=== PATIENT | male | born 1955 | race Caucasian/White ===

== ENCOUNTER 2019-09-19 17:50 | Emergency (ER) | payer MEDICAID, SELFPAY ==
[2019-09-19 17:53] VITALS: BP 143/98; PULSE 113; RESP 17; TEMP 37.1; O2SAT 94; BMI 28.4
--- NOTE | 2019-09-19 18:23 | EKG12_ITS ---
Test Reason : ASTHMA Blood Pressure : / mmHG Vent. Rate : 098 BPM Atrial Rate : 098 BPM P-R Int : 150 ms QRS Dur : 088 ms QT Int : 364 ms P-R-T Axes : 050 020 -16 degrees QTc Int : 464 ms Normal sinus rhythm Nonspecific T wave abnormality Prolonged QT Abnormal ECG Confirmed by STANLEY WEN, GLENDY ([id number]), video tape editor LATOYA TESFAYE ([id number]) on 09/21/2019 10:58:25 AM Referred By: LUZ Confirmed By:GLENDY ANGEL MD
--- NOTE | 2019-09-19 18:36 | ED.RN ---
NO OLD EKGS IN MUSE
--- NOTE | 2019-09-19 19:05 | RAD_ITS ---
STUDY: X-RAY CHEST REASON FOR EXAM: Male, 64 years old. Asthma TECHNIQUE: Frontal view of the chest COMPARISON: None. FINDINGS: The lungs are clear. There are no pleural effusions. There is no pneumothorax. The heart is normal in size. The visualized osseous structures are within normal limits. RAD/Chest 1 View (Portable) IMPRESSION: No acute thoracic pathology. Electronically Signed: Salas Hsieh, at 19:18 EDT Tel , Service support ,
[2019-09-19] MEDS: MethylPREDNISolone 125 MG/2 ML Vial IV (19:50)
[2019-09-19 19:52] VITALS: O2SAT 97
[2019-09-19 19:56] VITALS: BP 142/90; PULSE 91; RESP 18; TEMP 37.1; O2SAT 96
[2019-09-19 20:09] LABS: Absolute Lymphocyte Count 1.49 X10^3/uL (0.83-4.51); Absolute Neutrophil Count 3.7 X10^3/uL (2.0-7.7); Basophil# 0.04 X10^3/uL; Basophil% 0.7 % (0-1); Eosinophil# 0.24 X10^3/uL; Eosinophils% 3.9 % (0-5); Hematocrit 43.8 % (40-54); Hemoglobin 14.8 g/dL (13.0-16.5); Lymphocyte # 1.49 X10^3/ul (4.0); Lymphocyte % 24.4 % (19-41); Mean Corp Hgb Conc 33.8 g/dL (32-36); Mean Corpuscular Hgb 29.3 pg (27.0-32.0); Mean Corpuscular Volume 86.7 fL (80-94); Mean Platelet Vol. 9.9 fl (6.2-12.0); Monocyte# 0.63 X10^3/uL; Monocyte% 10.3 % (0-10); NRBC Flagged by Analyzer 0 % (0-5); Neutrophil # 3.68 X10^3/uL (2.7-7.7); Neutrophil % 60.4 % (47-70); Platelet Count 248 K/mm3 (150-450); RBC Distribution Width CV 15.2 % (11.6-14.6); RBC Distribution Width SD 47.7 fl (35.1-43.9); Red Blood Count 5.05 M/mm3 (4.6-6.2); White Blood Count 6.1 K/mm3 (4.4-11.0)
--- NOTE | 2019-09-19 20:11 | ED.DCSUM_ITS ---
- ER Visit Summary Date of Service: 09/19/19 Chief Complaint: Shortness of breath History of Present Illness: The patient is a [address] Falk. He reports that he moved here from [place] 6 weeks ago. He lives with his cousin who has dogs and I am allergic to dogs. States he says shortness of breath began 2 days ago but that is consistent with his asthma. States that he ran out of his inhaler. Patient reports has had a cough for the past week is productive yellow sputum without blood. He denies any fever or chills. He reports that he has moderate shortness of breath currently and severe shortness of breath at worst. He denies any chest pain. Physical Examination: Vitals: Stable. Afebrile. General: Well-nourished and well-developed. Head: Normocephalic atraumatic. Neck: Supple, no lymphadenopathy. No JVD. Nontender. Cardiovascular: Regular rate and rhythm. No murmurs. Respiratory: No respiratory distress. Minimal end expiratory wheezing bilaterally with good air movement. Abdominal: Soft, nontender, nondistended, normal bowel sounds. No guarding, rebound, or peritoneal signs. Back: Nontender. Extremities: Nontender, no edema. Skin: Normal color, no rash. Neurologic: Alert and oriented ?3. Cranial nerves II through XII are intact. Normal strength and sensation. Psych: Normal affect. Test Results: EKG is sinus at [address] changes. His QTC is 464. There is no old EKG for comparison. Troponin is negative. Chem-7 shows a chloride of 110 and glucose 114. CBC shows monocytes of 10. Clinical Impression(s) from Imaging Studies Chest X-Ray 09/19/19 19:05 IMPRESSION: No acute thoracic pathology. Electronically Signed: Salastomer Hsieh, at 19:18 EDT Tel , Service support , Emergency Department Course and Treatment: Patient was given a dose of Solu- Medrol IV here. He is resting comfortably. Treatment Plan: Patient will be treated as a COPD exacerbation. He is discharged with doxycycline, 5-day burst of prednisone, and albuterol MDI. Instructed to follow-up his primary care physician in 3 to 5 days if not improvi ng. Return to the emergency department for any worsening symptoms. Disposition: To home in improved and stable condition. Impression: 1. COPD exacerbation. This note was generated with [employer] dictation software. It may contain incorrect words, spelling, and punctuation that were not noted in review of the chart prior to signing ED Disposition - Plan for ED Patient: Disposition: Home or Assisted Living Instructions: ED COPD Flare Prescriptions: Prednisone [Deltasone] 40 mg PO DAILY #10 tab Prescription Printed Doxycycline 100 mg PO BID #14 cap Prescription Printed Albuterol Inhaler [Ventolin Hfa] 2 puff INHALATION Q4H PRN PRN #1 inhaler PRN Reason: Wheezing Prescription Printed Referrals: Nereida Falk MD [Primary Care Provider] - 3-5 Days if not improving
[2019-09-19 20:25] LABS: Anion Gap 5 (5-15); BUN 17 mg/dL (7-18); BUN/Creat Ratio 19.7 RATIO (10-20); Calcium,Total 8.8 mg/dL (8.5-10.1); Chloride 110 mmol/L (98-107); Creatinine, Serum 0.86 mg/dL (0.70-1.30); EST Glomerular Filtration Rate 95 mL/min (>60); Est Glom Filt Rate - Afr Amer 115 mL/min (>60); Estimated Creatinine Clearance 94.85 ml/min; Glucose 114 mg/dL (74-106); Sodium Level 142 mmol/L (136-145)
[2019-09-19 20:37] LABS: Lactic Acid 1.4 mmol/L (0.4-1.9)
[2019-09-19 21:14] VITALS: BP 134/86; PULSE 96; RESP 18
== END 2019-09-19 21:15 | disposition home or self-care (01) ==
PROVIDERS: Emergency Provider Emergency Medicine; PCP Internal Medicine
DX: J44.1 Chronic obstructive pulmonary disease with (acute) exacerbation (principal)
CPT/HCPCS: 36415; 71045; 80048; 83605; 84484; 85025; 87040; 87635; 93005; 94799; 96374; 99285; A4216; U0003

== ENCOUNTER 2019-11-24 13:48 | Emergency (ER) | payer MEDICAID, SELFPAY ==
[2019-11-24 13:49] VITALS: BP 136/92; PULSE 109; RESP 16; TEMP 36.6; O2SAT 98; BMI 27.0
--- NOTE | 2019-11-24 14:02 | US_ITS ---
STUDY: SCROTUM ULTRASOUND REASON FOR EXAM: Male, 64 years old. LT PAIN AND SWELLING TECHNIQUE: Ultrasound evaluation of the scrotum was performed with color Doppler and static hoffman-scale imaging. COMPARISON: None. FINDINGS: RIGHT TESTICLE INTRATESTICULAR: There is a normal size of the right testicle. The right testicle measures 4.2 x 2.8 x 2.3 cm. There is a heterogeneous echotexture. There is normal arterial and normal venous vascularity. There is no demonstrated right testicular mass or cyst. EXTRATESTICULAR: The epididymis is normal in size. The epididymis head measures 1.7 x 1.8 x 1.3 cm. There is normal vascularity of the epididymis. There are still right epididymal cyst measuring 6 mm and 15mm respectively. There is no demonstrated hydrocele. There is no demonstrated varicocele. There is no demonstrated extratesticular mass or cyst. LEFT TESTICLE INTRATESTICULAR: There is a normal size of the left testicle. The left testicle measures 3.4 x 3 x 2.9 cm. There is a homogenous echotexture. There is normal arterial and normal venous vascularity. There is no demonstrated left testicular mass or cyst. EXTRATESTICULAR: The epididymis is normal in size. The epididymis head measures 1.9 x 1.7 x 0.9 cm. There is normal vascularity of the epididymis. There are 2 left epididymal cyst measuring selectively 9 mm and 38 mm. There is no demonstrated hydrocele. There is no demonstrated varicocele. There is no demonstrated extratesticular mass or cyst. US/Testicular with Arterial Flow IMPRESSION: Bilateral epididymis cysts. There is no evidence of testicular torsion. Electronically Signed: Meghana De Jesus, at 15:45 EDT Tel , Service support ,
--- NOTE | 2019-11-24 15:38 | ED.DCSUM_ITS ---
- ER Visit Summary Date of Service: 11/24/19 Chief Complaint: [Pain and swelling to left testicle] History of Present Illness: The patient is a 64 M [Presents to the emergency department with symptoms that started this morning upon awakening. Patient states that he has had similar symptoms in the past that resolved with antibiotics. Patient believes it was due to epididymitis. Patient denies any injury to his testicle. He denies dysuria. Has had no fevers. Patient noticed increased discomfort when anything touches the scrotum and testicle. Patient has no other medical history.] Physical Examination: [HEENT-PERRLA, EOMI. Cranial nerves II through XII grossly intact. TMs clear. Mucous membranes moist. No adenopathy. Cardiovascular-regular rate and rhythm without murmur or ectopy Lungs-clear to auscultation, chest wall stable without crepitus or subcu emphysema Abdomen-normoactive bowel sounds, soft, nontender, no rebound or rigidity, no peritoneal signs. exam-patient has erythema over the area of the left testicle with fullness noted. Patient has tenderness to palpation of the testicle and the left epididymis. Normal cremasteric reflex bilaterally. Extremities-intact ?4, normal range of motion, normal pulses, atraumatic] Test Results: [Urinalysis ordered and pending. Testicular ultrasound obtained was unremarkable. Patient had normal blood flow bilaterally.] Emergency Department Course and Treatment: [She was started on Bactrim and Keflex.] Treatment Plan: [We will be given a prescription for Naprosyn as well as Bactrim and Keflex. Patient advised to follow-up with urology in 3 to 5 days.] Disposition: [Discharged home in stable condition] Impression: [Left testicular pain Cellulitis scrotum] This note was generated with [employer] dictation software. It may contain incorrect words, spelling, and punctuation that were not noted in review of the chart prior to signing ED Disposition - Plan for ED Patient: Referrals: Nereida Falk MD [Primary Care Provider] -
[2019-11-24 15:55] LABS: Mucous, Urine 0 SEEN /hpf (<or=2+); Squamous Epithelial Cells - UA 0 SEEN /hpf (0-5)
[2019-11-24 15:57] LABS: Color, Urine Yellow (Yellow); Glucose, Dipstick Normal (Normal); Ketone-Dipstick 5 mg/dl (Negative); Leukocyte Esterase-Dipstick 100 /ul (Negative); Nitrite-Dipstick Positive (Negative); Occult Blood-Urine 150 /ul (Negative); Protein-Dipstick Negative (Negative); Urine Bilirubin Dipstick Negative (Negative); Urine Clarity Sl. Cloudy (Clear); Urine Urobilinogen Normal (Normal)
[2019-11-24 16:35] VITALS: BP 112/78; PULSE 87; RESP 16; O2SAT 99
[2019-11-24] MEDS: Smz/Tmp Ds Tablet 1 TABLET PO (16:46)
[2019-11-24] MEDS: Cephalexin 250 MG Capsule 500 MG PO (16:46)
--- NOTE | 2019-11-24 17:01 | ED.DEP ---
ED Disposition - Plan for ED Patient: Instructions: ED Epididymitis, ED Orchitis, ED Cellulitis Prescriptions: Smz/Tmp Ds [Bactrim Ds] 1 tab PO BID #20 tab Prescription Printed Cephalexin [Keflex] 500 mg PO Q6 #40 cap Prescription Printed Naproxen [Naprosyn] 500 mg PO BID PRN #20 tab Prescription Printed Referrals: Nereida Falk MD [Primary Care Provider] - Simeon Perez MD [STAFF PHYSICIAN] - 3-5 Days
[2019-11-24 17:10] LABS: Bacteria 3+ /hpf (None Seen); Red Blood Cells-Urine 0-5 SEEN /hpf (0-5); White Blood Cells 5-10 SEEN /hpf (0-5)
[2019-11-24 17:32] VITALS: BP 154/78; PULSE 82; RESP 22; O2SAT 97
--- NOTE | 2019-11-24 17:33 | ED.RN ---
THIS NURSE REVIEWED D/C INSTRUCTIONS WITH PT. PT VERBALIZED UNDERSTANDING OF INSTRUCTIONS. PT DENIES FURTHER NEED OR QUESTIONS AT THIS TIME.
== END 2019-11-24 17:36 | disposition home or self-care (01) ==
PROVIDERS: Emergency Provider Emergency Medicine; PCP Internal Medicine
DX: N49.2 Inflammatory disorders of scrotum (principal); N50.812 Left testicular pain; N39.0 Urinary tract infection, site not specified; Z72.0 Tobacco use
CPT/HCPCS: 76870; 81001; 87077; 87086; 87088; 87186; 93976; 99283; J7030